=== PATIENT | female | born 1980 | race Two or more races ===

== ENCOUNTER 2019-11-12 15:45 | Emergency (ER) | payer MEDICAID, OTHER ==
[~2019-11-12] VITALS: Ht 157.5 cm; Wt 85.7 kg
[2019-11-12] MEDS ORDERED: IBUPROFEN 800 MG TAB PO ONE (16:15)
[2019-11-12] MEDS ORDERED: ACETAMINOPHEN 325 MG TAB PO ONE (16:15)
[2019-11-12 17:50] LABS: Urine Bacteria NONE SEEN /hpf (None Seen); Urine Blood Negative /uL (Negative); Urine Specific Gravity 1.019 (1.001-1.035); Urine WBC <1 /hpf (0 - 5)
[2019-11-12 18:33] VITALS: BP 100/62
== END 2019-11-12 18:43 | disposition home or self-care (01) ==
LOC: ER 15:45
DX: J10.1 Influenza due to other identified influenza virus with other respiratory manifestations (principal)
CPT/HCPCS: 81001; 81025; 87804

== ENCOUNTER 2020-08-18 22:50 | Emergency (ER) | payer MEDICAID ==
[~2020-08-18] VITALS: Ht 152.4 cm; Wt 83.0 kg
[2020-08-19 03:25] VITALS: BP 113/77
== END 2020-08-19 04:11 | disposition home or self-care (01) ==
LOC: ER 22:52
DX: M54.2 Cervicalgia (principal); J01.00 Acute maxillary sinusitis, unspecified; F41.9 Anxiety disorder, unspecified
CPT/HCPCS: 70450